=== PATIENT | female | born 1990 | race Caucasian/White ===

== ENCOUNTER 2019-11-14 11:09 | Inpatient (IN) | payer OTHER ==
[~2019-11-14 11:09] MED LIST: Bupivacaine 0.25% 10 ML SDV ONE
[2019-11-14] MEDS ORDERED: Ondansetron 4 MG/2 ML SDV IVPUSH PRN ×2 (11:38→16:32)
[2019-11-14] MEDS ORDERED: Sodium Chloride 0.9% 10 ML Syringe FLUSH PRN (11:38)
[2019-11-14] MEDS ORDERED: Nalbuphine 10 MG/ML Syringe IVPUSH PRN (11:38)
--- NOTE | 2019-11-14 11:40 | PCM.LDHP ---
L&D History of Present Illness - General Date of Service: 11/14/19 Admit Problem/Dx: Patient Status Order with Admit Dx/Problem 11/14/19 11:38 Patient Status [ADT] Routine Admission Diagnosis/Problem Admission Diagnosis/Problem Spontaneous rupture of membranes Source of Information: Patient History Limitations: Reports: No Limitations - History of Present Illness Introduction:: 29 y/o at 40 5/7 wks who presents today for SROM. Was seen in clinic earlier today for membrane sweeping. Thought to have LOF with this motion and so advised to present to L&D. Doing well currently. 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: : 1 Para: 0 - Past Surgical History HEENT Surgical History: Reports: Oral Surgery (tooth extraction) Social & Family History - Tobacco Use Smoking Status *Q: Never Smoker - Alcohol Use Alcohol Use History: No - Recreational Drug Use Recreational Drug Use: No H&P Review of Systems - Review of Systems: Review Of Systems: See Below General: Reports: No Symptoms Pulmonary: Reports: No Symptoms Cardiovascular: Reports: No Symptoms Gastrointestinal: Reports: No Symptoms Genitourinary: Reports: No Symptoms Musculoskeletal: Reports: No Symptoms Psychiatric: Reports: No Symptoms L&D Exam - Exam Exam: See Below - Vital Signs Vital Signs: Last Vital Signs Temp 37.1 C 11/14/19 11:21 Pulse 93 11/14/19 11:21 Resp 16 11/14/19 11:21 BP 112/81 11/14/19 11:21 Pulse Ox 99 11/14/19 11:21 Weight: 85.684 kg - OB Specific Contraction Intensity: Mild Movement: Active Heart Tones: Present Heart Tones per Min: 130 Heart Rate (FHR) Variability: Moderate (6-25 bmp) Presentation: Vertex - Loya Score Loya Score Cervix Position: Posterior Loya Score Consistency: Soft Loya Score Effacement: 51-70% Loya Score Dilation: 1-2 cm Loya Score 's Station: -2 Loya Score Total: 6 - Exam General: Alert, Oriented, Cooperative Lungs: Clear to Auscultation, Normal Respiratory Effort Cardiovascular: Regular Rate, Regular Rhythm GI/Abdominal Exam: Soft, Non-Tender Genitourinary: Normal external exam Extremities: Normal Inspection Skin: Warm, Dry, Intact - Patient Data Result Diagrams: 11/14/19 11:49 - Problem List (1) 40 weeks gestation of SNOMED Code(s): 87223990 ICD Code: Z3A.40 - 40 WEEKS GESTATION OF Status: Acute Current Visit: Yes (2) Spontaneous rupture of membranes SNOMED Code(s): 269305947 ICD Code: [id number] - Status: Acute Current Visit: Yes Problem List Initiated/Reviewed/Updated: Yes Orders Last 24hrs: Active Orders 24 hr Category Date Time Status Patient Status [ADT] Routine ADT 11/14/19 11:38 Ordered Activity as Tolerated [RC] PFP Care 11/14/19 11:38 Ordered Communication Order [RC] ASDIRECTED Care 11/14/19 11:38 Ordered Heart Tones [RC] ASDIRECTED Care 11/14/19 11:39 Ordered Non Stress Test [RC] PER UNIT ROUTINE Care 11/14/19 11:38 Ordered Notify Provider [RC] PRN Care 11/14/19 11:38 Ordered Peripheral IV Care [RC] . DIRECTED Care 11/14/19 11:39 Ordered Vital Signs [RC] PER UNIT ROUTINE Care 11/14/19 11:38 Ordered CBC W/O DIFF,HEMOGRAM [HEME] Stat Lab 11/14/19 11:38 Ordered RAPID PLASMA REAGIN,RPR [CHEM] Routine Lab 11/14/19 11:38 Ordered TYPE AND SCREEN [BBK] Stat Lab 11/14/19 11:38 Ordered Lactated Ringers [Ringers, Lactated] 1,000 ml Med 11/14/19 11:45 Ordered IV ASDIRECTED Nalbuphine [Nubain] Med 11/14/19 11:38 Ordered 10 mg IVPUSH Q2H PRN Ondansetron [Zofran] Med 11/14/19 11:38 Ordered 4 mg IVPUSH Q4H PRN Oxytocin/Lactated Ringers [Pitocin in LR 10 Units/1,000 Med 11/14/19 11:45 Ordered ML] 10 unit in 1,000 ml IV .CONTINUOUS Sodium Chloride 0.9% [Saline Flush] Med 11/14/19 11:38 Ordered 10 ml FLUSH ASDIRECTED PRN Electronic Heart Tones Ext w TOCO [WOMSER] Ot 11/14/19 11:38 Ordered Routine Electronic Heart Tones Internal [WOMSER] Per Unit Ot 11/14/19 11:38 Ordered Routine Peripheral IV Insertion Adult [OM.PC] Routine Ot 11/14/19 11:38 Ordered Resuscitation Status Routine Resus Stat 11/14/19 11:38 Ordered Assessment/Plan Comment:: * Exam done and shows maybe a forebag. Attempt at rupture done - scant additional fluid released * Labs done * GBS negative * Consider pitocin augmentation * Pain management per patient preference * Anticipate
[2019-11-14] MEDS ORDERED: Oxytocin/Lactated Ringers 10 UNIT/1,000 ML BAG IV SCH ×2 (11:45→13:00)
[2019-11-14] MEDS: Lactated Ringers 1,000 ML IV SCH ×4 (15:59→20:00)
[2019-11-14] MEDS ORDERED: ePHEDrine 50 MG/ML SDV IVPUSH PRN (16:32)
[2019-11-14] MEDS ORDERED: fentaNYL 100 MCG/2 ML SDV EPIDUR PRN (16:32)
--- NOTE | 2019-11-14 16:36 | PCM.PREANE ---
Preanesthetic Assessment - Procedure Proposed Procedure: Epidural - Anesthesia/Transfusion/Family Hx Anesthesia History: Prior Anesthesia Without Reaction Family History of Anesthesia Reaction: No Transfusion History: No Prior Transfusion(s) Intubation History: Unknown - Review of Systems General: No Symptoms Pulmonary: No Symptoms Cardiovascular: No Symptoms Gastrointestinal: No Symptoms Neurological: No Symptoms Other: Reports: None - Physical Assessment NPO Status Date: 11/14/19 NPO Status Time: 10:45 Vital Signs: Last Vital Signs Temp 37.1 C 11/14/19 11:21 Pulse 93 11/14/19 11:21 Resp 16 11/14/19 11:21 BP 112/81 11/14/19 11:21 Pulse Ox 99 11/14/19 11:21 Height: 1.6 m Weight: 85.684 kg ASA Class: 2 Mental Status: Alert & Oriented x3 Airway Class: Mallampati = 2 Dentition: Reports: Normal Dentition, Caries Thyro-Mental Finger Breadths: 3 Mouth Opening Finger Breadths: 3 ROM/Head Extension: Full Lungs: Clear to Auscultation, Normal Respiratory Effort Cardiovascular: Regular Rate, Regular Rhythm, No Murmurs - Lab Values: Laboratory Last Values WBC 11.20 K/mm3 (3.98-10.04) H 11/14/19 11:49 RBC 4.22 M/mm3 (3.98-5.22) 11/14/19 11:49 Hgb 10.7 gm/dl (11.2-15.7) L 11/14/19 11:49 Hct 33.9 % (34.1-44.9) L 11/14/19 11:49 MCV 80.3 fl (79.4-94.8) 11/14/19 11:49 MCH 25.4 pg (25.6-32.2) L 11/14/19 11:49 MCHC 31.6 g/dl (32.2-35.5) L 11/14/19 11:49 RDW Std Deviation 41.5 fL (36.4-46.3) 11/14/19 11:49 Plt Count 221 K/mm3 (182-369) 11/14/19 11:49 MPV 11.8 fl (9.4-12.3) 11/14/19 11:49 Blood Type A POSITIVE 11/14/19 11:49 Gel Antibody Screen Negative 11/14/19 11:49 Above labs reviewed and noted and within acceptable ranges to proceed with epidural if desired. 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: - Infectious Disease History Infectious Disease History: Reports: Chicken Pox - Past Surgical History HEENT Surgical History: Reports: Oral Surgery (tooth extraction) - SUBSTANCE USE Smoking Status *Q: Never Smoker Recreational Drug Use History: No - HOME MEDS Home Medications: Home Meds Vits #93/Iron Fum/FA [ Formula Tablet] 1 each PO 11/14/19 [ History] - CURRENT (IN HOUSE) MEDS Current Meds: Current Medications Ephedrine Sulfate (Ephedrine Sulfate) 5 mg IVPUSH ASDIRECTED PRN PRN Reason: Hypotension Fentanyl (Sublimaze) 100 mcg EPIDUR Q3H PRN PRN Reason: Pain Fentanyl/Bupivacaine HCl (Fentanyl/Bupivacaine/Ns 2 Mcg-0.125% 100 Ml) 100 ml EPIDUR ASDIRECTED DAI Lactated Ringer's (Ringers, Lactated) 1,000 mls @ 100 mls/hr IV ASDIRECTED DAI Last Admin: 11/14/19 15:59 Dose: 100 mls/hr Oxytocin/Lactated Ringer's (Pitocin In Lr 10 Units/1,000 Ml) 10 unit in 1,000 mls @ 500 mls/hr IV .CONTINUOUS DAI Oxytocin/Lactated Ringer's (Pitocin In Lr 10 Units/1,000 Ml) 10 unit in 1,000 mls @ 12 mls/hr IV TITRATE DAI; Protocol Last Titration: 11/14/19 16:17 Dose: 1 munits/min, 6 mls/hr Phenylephrine HCl 1 mg/ Sodium (Chloride) 10.1 mls @ 1 mls/sec IV TITRATE DAI; Protocol Nalbuphine HCl (Nubain) 10 mg IVPUSH Q2H PRN PRN Reason: Pain Ondansetron HCl (Zofran) 4 mg IVPUSH Q4H PRN PRN Reason: Nausea/Vomiting Ondansetron HCl (Zofran) 4 mg IVPUSH ONETIME PRN PRN Reason: Nausea/Vomiting Sodium Chloride (Saline Flush) 10 ml FLUSH ASDIRECTED PRN PRN Reason: Keep Vein Open
[2019-11-14] MEDS ORDERED: Bupivacaine/fentaNYL/NS 100 ML Bag EPIDUR SCH (16:45)
[2019-11-14] MEDS ORDERED: Phenylephrine 1 MG in Sodium Chloride 0.9% 10 ML IV SCH (16:45)
--- NOTE | 2019-11-14 22:43 | PCM.DEL ---
L & D Note - General Info Date of Service: 11/14/19 - Delivery Note Labor: Augmented by Oxytocin Delivery Outcome: Livebirth Delivery Method: Spontaneous Vaginal Delivery-Single Delivery Mode: Spontaneous Presentation: Right Occiput Anterior (SARIAH) Nuchal Cord: None Anesthesia Type: Epidural Amniotic Fluid Description: Clear Episiotomy Type: None Laceration: 2nd Degree, Perineal Suture type: Vicryl Suture size: 2-0 Placenta: Intact, Spontaneous Cord: 3 Vessels Estimated Blood Loss: 100 [place]: Bulb Syringe, Stimulated, Warmed, [place] Used, Warmer Used Delivery Comments (Free Text/Narrative):: Patient found to be complete and began pushing. With maternal pushing effort head delivered from an SARIAH presentation. No nuchal cord present. With gentle downward traction shoulders and body delivered. Infant placed on maternal abdomen. Cord clamped and cut. Cord blood obtained. Placenta allowed time to separate an expelled intact. Inspection of the perineum showed a 2nd degree laceration which was repaired with a 2-0 vicryl in the typical fashion. - General Info Date of Service: 11/14/19 - Patient Data Vitals - Most Recent: Last Vital Signs Temp 37.1 C 11/14/19 11:21 Pulse 93 11/14/19 11:21 Resp 16 11/14/19 11:21 BP 112/81 11/14/19 11:21 Pulse Ox 99 11/14/19 11:21 Weight - Most Recent: 85.684 kg I&O - Last 24 Hours: Intake & Output 11/14/19 11/14/19 11/14/19 06:59 14:59 22:59 Intake Total 1999 Balance 1999 - Problem List & Annotations (1) 40 weeks gestation of SNOMED Code(s): 71544499 Code(s): Z3A.40 - 40 WEEKS GESTATION OF Status: Acute Current Visit: Yes (2) Spontaneous rupture of membranes SNOMED Code(s): 826243163 Code(s): FXD7843 - Status: Acute Current Visit: Yes (3) Vaginal delivery SNOMED Code(s): 320418080 Code(s): O80 - ENCOUNTER FOR FULL-TERM UNCOMPLICATED DELIVERY Status: Acute Current Visit: Yes - Problem List Review Problem List Initiated/Reviewed/Updated: Yes - My Orders Last 24 Hours: My Active Orders 11/14/19 11:38 Patient Status [ADT] Routine Activity as Tolerated [RC] PFP Communication Order [RC] ASDIRECTED Non Stress Test [RC] PER UNIT ROUTINE Notify Provider [RC] PRN Vital Signs [RC] PER UNIT ROUTINE Nalbuphine [Nubain] 10 mg IVPUSH Q2H PRN Ondansetron [Zofran] 4 mg IVPUSH Q4H PRN Sodium Chloride 0.9% [Saline Flush] 10 ml FLUSH ASDIRECTED PRN Electronic Heart Tones Ext w TOCO [WOMSER] Routine Electronic Heart Tones Internal [WOMSER] Per Unit Routine Peripheral IV Insertion Adult [OM.PC] Routine Resuscitation Status Routine 11/14/19 11:39 Heart Tones [RC] ASDIRECTED Peripheral IV Care [RC] . DIRECTED 11/14/19 11:45 Lactated Ringers [Ringers, Lactated] 1,000 ml IV ASDIRECTED Oxytocin/Lactated Ringers [Pitocin in LR 10 Units/1,000 ML] 10 unit in 1,000 ml IV .CONTINUOUS 11/14/19 13:00 Oxytocin/Lactated Ringers [Pitocin in LR 10 Units/1,000 ML] 10 unit in 1,000 ml IV TITRATE 11/14/19 17:48 Urinary Catheter Assessment [RC] ASDIRECTED 11/14/19 18:00 Insert Urinary Catheter [OM.PC] Q24H 11/14/19 Breakfast Regular Diet [DIET] - Assessment Assessment:: PPD#0 - Plan Plan:: * Routine cares * Breast feeding * Discharge in 1-2 days
[2019-11-15] MEDS ORDERED: Acetaminophen 325 MG Tab PO PRN
[2019-11-15] MEDS ORDERED: Benzocaine/Menthol 20%-0.5% Spray 56 GM Canister TOP PRN
[2019-11-15] MEDS ORDERED: Witch Hazel Medicated Pads 40/Jar TOP PRN
[2019-11-15] MEDS: Ibuprofen 600 MG Tab PO PRN ×4 (01:02→19:30)
--- NOTE | 2019-11-15 07:49 | PCM.PNPP ---
- General Info Date of Service: 11/15/19 Functional Status: Reports: Pain Controlled, Tolerating Diet, Ambulating, Urinating - Review of Systems General: Reports: No Symptoms Pulmonary: Reports: No Symptoms Cardiovascular: Reports: No Symptoms Gastrointestinal: Reports: No Symptoms Genitourinary: Reports: No Symptoms Musculoskeletal: Reports: No Symptoms Neurological: Reports: No Symptoms - General Info Date of Service: 11/15/19 - Patient Data Vital Signs - Most Recent: Last Vital Signs Temp 36.7 C 11/15/19 03:00 Pulse 89 11/15/19 03:22 Resp 12 11/15/19 03:22 BP 119/64 11/15/19 03:22 Pulse Ox 97 11/15/19 03:22 Weight - Most Recent: 85.684 kg I&O - Last 24 Hours: Intake & Output 11/14/19 11/15/19 11/15/19 22:59 06:59 14:59 Intake Total 2000 2500 Output Total 700 Balance 1300 2500 Lab Results - Last 24 Hours: Laboratory Results - last 24 hr 11/14/19 11/14/19 11/14/19 Range/Units 11:49 11:49 11:49 WBC 11.20 H (3.98-10.04) K/mm3 RBC 4.22 (3.98-5.22) M/mm3 Hgb 10.7 L (11.2-15.7) gm/dl Hct 33.9 L (34.1-44.9) % MCV 80.3 (79.4-94.8) fl MCH 25.4 L (25.6-32.2) pg MCHC 31.6 L (32.2-35.5) g/dl RDW Std Deviation 41.5 (36.4-46.3) fL Plt Count 221 (182-369) K/mm3 MPV 11.8 (9.4-12.3) fl RPR Non-reactive (NONREACTIVE) Blood Type A POSITIVE Gel Antibody Screen Negative Med Orders - Current: Current Medications Acetaminophen (Tylenol) 650 mg PO Q4H PRN PRN Reason: mild pain or fever Benzocaine/Menthol (Dermoplast Pain Relief [place]) 0 gm TOP ASDIRECTED PRN PRN Reason: Perineal Comfort Measure Last Admin: 11/15/19 01:04 Dose: 1 applic Docusate Sodium (Colace) 100 mg PO BID PRN PRN Reason: Constipation Ibuprofen (Motrin) 600 mg PO Q6H PRN PRN Reason: Mild pain or fever Last Admin: 11/15/19 07:17 Dose: 600 mg Witch Sandy (Tucks) 1 pad TOP ASDIRECTED PRN PRN Reason: Perineal Comfort Measure Last Admin: 11/15/19 01:03 Dose: 1 pad Discontinued Medications Ephedrine Sulfate (Ephedrine Sulfate) 5 mg IVPUSH ASDIRECTED PRN PRN Reason: Hypotension Fentanyl (Sublimaze) 100 mcg EPIDUR Q3H PRN PRN Reason: Pain Last Admin: 11/14/19 17:14 Dose: 100 mcg Fentanyl/Bupivacaine HCl (Fentanyl/Bupivacaine/Ns 2 Mcg-0.125% 100 Ml) 100 ml EPIDUR ASDIRECTED DAI Last Admin: 11/14/19 17:14 Dose: 100 ml Lactated Ringer's (Ringers, Lactated) 1,000 mls @ 100 mls/hr IV ASDIRECTED DAI Last Admin: 11/14/19 20:00 Dose: 100 mls/hr Oxytocin/Lactated Ringer's (Pitocin In Lr 10 Units/1,000 Ml) 10 unit in 1,000 mls @ 500 mls/hr IV .CONTINUOUS DAI Oxytocin/Lactated Ringer's (Pitocin In Lr 10 Units/1,000 Ml) 10 unit in 1,000 mls @ 12 mls/hr IV TITRATE DAI; Protocol Last Titration: 11/14/19 16:17 Dose: 1 munits/min, 6 mls/hr Phenylephrine HCl 1 mg/ Sodium (Chloride) 10.1 mls @ 1 mls/sec IV TITRATE DAI; Protocol Nalbuphine HCl (Nubain) 10 mg IVPUSH Q2H PRN PRN Reason: Pain Ondansetron HCl (Zofran) 4 mg IVPUSH Q4H PRN PRN Reason: Nausea/Vomiting Ondansetron HCl (Zofran) 4 mg IVPUSH ONETIME PRN PRN Reason: Nausea/Vomiting Sodium Chloride (Saline Flush) 10 ml FLUSH ASDIRECTED PRN PRN Reason: Keep Vein Open - Interaction Infant Disposition, : [place] in Room with Family Interaction: Holding Infant Infant Feeding: Attempted ; Nursed Fair/Poor Support Person: - Recovery Exam Fundal Tone: Firm Fundal Level: At Umbilicus Fundal Placement: Midline Lochia Amount: Small Lochia Color: Rubra/Red Perineum Description: Other (see below) Other Perinuem Description: 1st degree laceration with repair Bladder Status: Voiding Urinary Elimination: Voided - Exam General: Alert, Oriented, Cooperative GI/Abdominal Exam: Soft, Non-Tender Extremities: Normal Inspection Skin: Warm, Dry, Intact - Problem List & Annotations (1) 40 weeks gestation of SNOMED Code(s): 99243323 Code(s): Z3A.40 - 40 WEEKS GESTATION OF Status: Acute Current Visit: Yes (2) Spontaneous rupture of membranes SNOMED Code(s): 128593109 Code(s): MCU1387 - Status: Acute Current Visit: Yes (3) Vaginal delivery SNOMED Code(s): 176748232 Code(s): O80 - ENCOUNTER FOR FULL-TERM UNCOMPLICATED DELIVERY Status: Acute Current Visit: Yes - Problem List Review Problem List Initiated/Reviewed/Updated: Yes - My Orders Last 24 Hours: My Active Orders 11/14/19 11:38 Vital Signs [RC] PER UNIT ROUTINE Resuscitation Status Routine 11/14/19 11:39 Heart Tones [RC] ASDIRECTED 11/15/19 00:00 Activity as Tolerated [RC] PER UNIT ROUTINE Vital Signs [RC] 03,09,15,21 Acetaminophen [Tylenol] 650 mg PO Q4H PRN Benzocaine/Menthol [Dermoplast Pain Relief [place]] See Dose Instructions TOP ASDIRECTED PRN Docusate Sodium [Colace] 100 mg PO BID PRN Ibuprofen [Motrin] 600 mg PO Q6H PRN witch Sandy [Tucks] 1 pad TOP ASDIRECTED PRN Assess Lochia [WOMSER] Per Unit Routine Assess Uterine Involution [WOMSER] Per Unit Routine Breast Pump [WOMSER] Per Unit Routine Heat Therapy [OM.PC] PRN Ice Therapy [OM.PC] Per Unit Routine Perineal Care [OM.PC] Per Unit Routine Peripheral IV Discontinue [OM.PC] Routine Sitz Bath [OM.PC] Per Unit Routine 11/15/19 Breakfast Regular Diet [DIET] 11/16/19 00:00 Heat Therapy [OM.PC] PRN - Assessment Assessment:: PPD#1 - Plan Plan:: * Routine cares * Breast feeding * Discharge home today
--- NOTE | 2019-11-15 07:59 | PCM48HPAN ---
Post Anesthesia Note - EVALUATION WITHIN 48HRS OF ANESTHETIC Vital Signs in Normal Range: Yes Patient Participated in Evaluation: Yes Respiratory Function Stable: Yes Airway Patent: Yes Cardiovascular Function Stable: Yes Hydration Status Stable: Yes Pain Control Satisfactory: Yes Nausea and Vomiting Control Satisfactory: Yes Mental Status Recovered: Yes Vital Signs: Last Vital Signs Temp 36.7 C 11/15/19 03:00 Pulse 89 11/15/19 03:22 Resp 12 11/15/19 03:22 BP 119/64 11/15/19 03:22 Pulse Ox 97 11/15/19 03:22 - COMMENTS/OBSERVATIONS Free Text/Narrative:: no anesthesia complications noted
[2019-11-15] MEDS: Docusate Sodium 100 MG Cap PO PRN ×2 (08:59→19:31)
[2019-11-16] MEDS: Ibuprofen 600 MG Tab PO PRN ×2 (03:17→09:12)
--- NOTE | 2019-11-16 06:51 | PCM.DCSUM1 ---
Discharge Summary - Hospital Course Brief History: Admitted, uncomplicated labor and . Desires discharge home. Diagnosis: Stroke: No - Discharge Data Discharge Date: 11/16/19 Discharge Disposition: Home, Self-Care 01 Condition: Good - Referral to Home Health Primary Care Physician: PCP None - Patient Instructions Diet: Usual Diet as Tolerated Activity: No Strenuous Activities Activity, Other: pelvic rest Driving: May Drive Today Showering/Bathing: May Shower Notify Provider of: Fever, Increased Pain, Swelling and Redness, Drainage, Nausea and/or Vomiting - Discharge Plan *PRESCRIPTION DRUG MONITORING PROGRAM REVIEWED*: No *COPY OF PRESCRIPTION DRUG MONITORING REPORT IN PATIENT FREDERIC: No Home Medications: Home Meds Vits #93/Iron Fum/FA [ Formula Tablet] 1 each PO 11/14/19 [ History] Referrals: Judith Wynn MD [Physician] - (2-3 weeks) - Discharge Summary/Plan Comment DC Time >30 min.: No - General Info Date of Service: 11/16/19 Functional Status: Reports: Pain Controlled - Review of Systems General: Reports: No Symptoms HEENT: Reports: No Symptoms Pulmonary: Reports: No Symptoms Cardiovascular: Reports: No Symptoms Gastrointestinal: Reports: No Symptoms Genitourinary: Reports: No Symptoms Musculoskeletal: Reports: No Symptoms Skin: Reports: No Symptoms Neurological: Reports: No Symptoms Psychiatric: Reports: No Symptoms - Patient Data Vitals - Most Recent: Last Vital Signs Temp 36.4 C 11/16/19 03:13 Pulse 69 11/16/19 03:13 Resp 14 11/16/19 03:13 BP 106/65 11/16/19 03:13 Pulse Ox 96 11/16/19 03:13 Weight - Most Recent: 85.684 kg Med Orders - Current: Current Medications Acetaminophen (Tylenol) 650 mg PO Q4H PRN PRN Reason: mild pain or fever Benzocaine/Menthol (Dermoplast Pain Relief [place]) 0 gm TOP ASDIRECTED PRN PRN Reason: Perineal Comfort Measure Last Admin: 11/15/19 01:04 Dose: 1 applic Docusate Sodium (Colace) 100 mg PO BID PRN PRN Reason: Constipation Last Admin: 11/15/19 19:31 Dose: 100 mg Ibuprofen (Motrin) 600 mg PO Q6H PRN PRN Reason: Mild pain or fever Last Admin: 11/16/19 03:17 Dose: 600 mg Witch [place] (Tucks) 1 pad TOP ASDIRECTED PRN PRN Reason: Perineal Comfort Measure Last Admin: 11/15/19 01:03 Dose: 1 pad Discontinued Medications Bupivacaine HCl (Sensorcaine-Mpf 0.25%) 10 ml .ROUTE .STK-MED ONE Stop: 11/14/19 00:01 Bupivacaine HCl (Sensorcaine-Mpf 0.25%) 10 ml .ROUTE .STK-MED ONE Stop: 11/14/19 00:01 Ephedrine Sulfate (Ephedrine Sulfate) 5 mg IVPUSH ASDIRECTED PRN PRN Reason: Hypotension Fentanyl (Sublimaze) 100 mcg EPIDUR Q3H PRN PRN Reason: Pain Last Admin: 11/14/19 17:14 Dose: 100 mcg Fentanyl/Bupivacaine HCl (Fentanyl/Bupivacaine/Ns 2 Mcg-0.125% 100 Ml) 100 ml EPIDUR ASDIRECTED DAI Last Admin: 11/14/19 17:14 Dose: 100 ml Lactated Ringer's (Ringers, Lactated) 1,000 mls @ 100 mls/hr IV ASDIRECTED DAI Last Admin: 11/14/19 20:00 Dose: 100 mls/hr Oxytocin/Lactated Ringer's (Pitocin In Lr 10 Units/1,000 Ml) 10 unit in 1,000 mls @ 500 mls/hr IV .CONTINUOUS DAI Oxytocin/Lactated Ringer's (Pitocin In Lr 10 Units/1,000 Ml) 10 unit in 1,000 mls @ 12 mls/hr IV TITRATE DAI; Protocol Last Titration: 11/14/19 16:17 Dose: 1 munits/min, 6 mls/hr Phenylephrine HCl 1 mg/ Sodium (Chloride) 10.1 mls @ 1 mls/sec IV TITRATE DAI; Protocol Nalbuphine HCl (Nubain) 10 mg IVPUSH Q2H PRN PRN Reason: Pain Ondansetron HCl (Zofran) 4 mg IVPUSH Q4H PRN PRN Reason: Nausea/Vomiting Ondansetron HCl (Zofran) 4 mg IVPUSH ONETIME PRN PRN Reason: Nausea/Vomiting Sodium Chloride (Saline Flush) 10 ml FLUSH ASDIRECTED PRN PRN Reason: Keep Vein Open - Exam General: Reports: Alert, Oriented HEENT: Reports: Pupils Equal, Pupils Reactive, EOMI, Mucous Membr. Moist/[place] Neck: Reports: Supple Lungs: Reports: Clear to Auscultation, Normal Respiratory Effort Cardiovascular: Reports: Regular Rate, Regular Rhythm GI/Abdominal Exam: Normal Bowel Sounds, Soft, Non-Tender, No Organomegaly, No Distention, No Abnormal Bruit, No Mass, Pelvis Stable Rectal (Female) Exam: Normal Exam Back Exam: Reports: Normal Inspection, Full Range of Motion Extremities: Normal Inspection, Normal Range of Motion Skin: Reports: Warm, Dry, Intact Neurological: Reports: No New Focal Deficit Psy/Mental Status: Reports: Alert, Normal Affect, Normal Mood
[2019-11-16] MEDS: Docusate Sodium 100 MG Cap PO PRN (11:52)
== END 2019-11-16 14:10 | disposition home or self-care (01) | DRG 807 ==
LOC: JD.OBCHECK 11:09 → JD.OB 11:13 → JD.OBCHECK 11:37 → JD.OB 11:38 → OBSVTOIN 22:05 → JD.OB 22:05
PROVIDERS: ADMIT Obstetrics & Gynecology; ATTEND Obstetrics & Gynecology
PROC: 10E0XZZ Delivery of Products of Conception, External Approach (ICD-10-PCS; principal; 2019-11-14)
PROC: 0KQM0ZZ Repair Perineum Muscle, Open Approach (ICD-10-PCS; 2019-11-14)
PROC: 10907ZC Drainage of Amniotic Fluid, Therapeutic from Products of Conception, Via Natural or Artificial Opening (ICD-10-PCS; 2019-11-14)
PROC: 3E0R3BZ Introduction of Anesthetic Agent into Spinal Canal, Percutaneous Approach (ICD-10-PCS; 2019-11-14)
DX: O48.0 Post-term pregnancy (principal); Z37.0 Single live birth; Z3A.40 40 weeks gestation of pregnancy; O70.1 Second degree perineal laceration during delivery
CPT/HCPCS: 36415; 51702; 59025; 59409; 85027; 86592; 86850; 86900; 86901; A9270-GY; J2590; J3010; J3490; J7120

== ENCOUNTER 2021-07-10 13:35 | Emergency (ER) | payer OTHER ==
[2021-07-10] MEDS ORDERED: Ondansetron 4 MG/2 ML SDV IVPUSH ONE (13:51)
[2021-07-10] MEDS ORDERED: Sodium Chloride 0.9% 10 ML Syringe FLUSH PRN (13:51)
[2021-07-10] MEDS ORDERED: Sodium Chloride 0.9% 1,000 ML IV SCH (14:00)
--- NOTE | 2021-07-10 15:51 | EDM.PDOC ---
ED HPI GENERAL MEDICAL PROBLEM - General Chief Complaint: Gastrointestinal Problem Stated Complaint: 18 WKS PG NAUSEA Time Seen by Provider: 07/10/21 13:48 Source of Information: Reports: Patient History Limitations: Reports: No Limitations - History of Present Illness INITIAL COMMENTS - FREE TEXT/NARRATIVE: 31-year-old female presents the emergency department today with complaints of nausea and vomiting. Nausea and vomiting started at approximately 12:30 AM this morning. She states she has vomited throughout the night and has not been able to keep any food or fluids down. Even small sips of water. Patient is 18 weeks . Last menstrual period 02/27/2021, MIRI 12/09/2021. She denies any fever, chills, headache, cough, shortness of breath or diarrhea or abdominal pain. She states that she has had a healthy otherwise. She has not had any hyperemesis associated with her . She states she does have some urinary symptoms that she noted this morning with voiding. She is voiding very small amounts and burning is noted. She denies any abdominal cramping or vaginal bleeding. She also states that approximately 2 days ago her friend and her sister both had 24 hours of nausea, vomiting and diarrhea. Her [employer] is . - Related Data Allergies Allergy/AdvReac Type Severity Reaction Status Date / Time Sulfa (Sulfonamide Allergy Rash Verified 11/14/19 11:25 Antibiotics) Home Meds: Home Meds Vits #93/Iron Fum/FA [ Formula Tablet] 1 tab PO DAILY 07/10/21 [History] Past Medical History - Past Health History Medical/Surgical History: Denies Medical/Surgical History [employer] History: Reports: Other [employer] History: - Infectious Disease History Infectious Disease History: Reports: Chicken Pox - Past Surgical History HEENT Surgical History: Reports: Oral Surgery Social & Family History - Family History Family Medical History: No Pertinent Family History - Tobacco Use Tobacco Use Status *Q: Never Tobacco User - Caffeine Use Caffeine Use: Reports: None - Recreational Drug Use Recreational Drug Use: No ED ROS GENERAL - Review of Systems Review Of Systems: Comprehensive ROS is negative, except as noted in HPI. ED EXAM, GI/ABD - Physical Exam Exam: See Below Exam Limited By: No Limitations General Appearance: Alert, WD/WN, No Apparent Distress Eyes: Bilateral: Normal Appearance Ears: Normal External Exam, Hearing Grossly Normal Nose: Normal Inspection Throat/Mouth: Normal Inspection, Normal Lips, Normal Voice, No Airway Compromise Head: Atraumatic Neck: Normal Inspection, Supple Respiratory/Chest: No Respiratory Distress, Lungs Clear, Normal Breath Sounds, No Accessory Muscle Use, Chest Non-Tender Cardiovascular: Normal Peripheral Pulses, Regular Rate, Rhythm, No Edema, No Murmur GI/Abdominal Exam: Normal Bowel Sounds (Female) Exam: Deferred Rectal (Female) Exam: Deferred Back Exam: Normal Inspection Extremities: Normal Inspection, Normal Range of Motion, Non-Tender, No Pedal Edema, Normal Capillary Refill Neurological: Alert, Oriented, Normal Cognition Psychiatric: Normal Affect, Normal Mood Skin Exam: Warm, Dry, Intact, Normal Color, No Rash Lymphatic: No Adenopathy Course - Vital Signs Text/Narrative:: As stated above, patient presents with 12-hour history of nausea and vomiting. Patient is tachycardic with a heart rate of 121 and a blood pressure of 98 over 80. Patient is likely dehydrated. Nursing staff has not planted standing orders and patient is currently receiving normal saline wide open and has received Zofran 4 mg IV. They have selected lab studies as well as urinalysis with micro and culture if indicated. At the time of my exam, patient states she is not having any nausea or vomiting. Physical exam is essentially unremarkable. Will evaluate labs once they return. Last Recorded V/S: Last Vital Signs Temp 98.4 F 07/10/21 13:45 Pulse 121 H 07/10/21 13:45 Resp 14 07/10/21 13:45 BP 98/80 07/10/21 13:45 Pulse Ox 96 07/10/21 13:45 - Orders/Labs/Meds Orders: Active Orders 24 hr Category Date Time Status Communication Order [RC] ASDIRECTED Care 07/10/21 13:51 Active Communication Order [RC] ASDIRECTED Care 07/10/21 13:51 Active Communication Order [RC] ASDIRECTED Care 07/10/21 13:51 Active Communication Order [RC] ASDIRECTED Care 07/10/21 13:51 Active Orthostatic Vital Signs [RC] ASDIRECTED Care 07/10/21 13:51 Active Peripheral IV Care [RC] . DIRECTED Care 07/10/21 13:51 Active Sodium Chloride 0.9% [Saline Flush] Med 07/10/21 13:51 Active 10 ml FLUSH ASDIRECTED PRN Peripheral IV Insertion Adult [OM.PC] Stat Oth 07/10/21 13:51 Ordered Medication Orders Sodium Chloride (Sodium Chloride 0.9% 10 Ml Syringe) 10 ml FLUSH ASDIRECTED PRN PRN Reason: Keep Vein Open Last Admin: 07/10/21 14:32 Dose: 10 ml Documented by: DELIO Labs: Laboratory Tests 07/10/21 07/10/21 07/10/21 Range/Units 14:15 14:15 15:35 WBC 11.06 H (3.98-10.04) K/mm3 RBC 4.49 (3.98-5.22) M/mm3 Hgb 11.6 (11.2-15.7) gm/dl Hct 35.8 (34.1-44.9) % MCV 79.7 (79.4-94.8) fl MCH 25.8 (25.6-32.2) pg MCHC 32.4 (32.2-35.5) g/dl RDW Std Deviation 42.2 (36.4-46.3) fL Plt Count 243 (182-369) K/mm3 MPV 10.6 (9.4-12.3) fl Neut % (Auto) 92.7 H (34.0-71.1) % Lymph % (Auto) 3.6 L (19.3-51.7) % [place] % (Auto) 3.2 L (4.7-12.5) % Eos % (Auto) 0 L (0.7-5.8) Baso % (Auto) 0.1 (0.1-1.2) % Neut # (Auto) 10.26 H (1.56-6.13) K/mm3 Lymph # (Auto) 0.40 L (1.18-3.74) K/mm3 [place] # (Auto) 0.35 (0.24-0.36) K/mm3 Eos # (Auto) 0.00 L (0.04-0.36) K/mm3 Baso # (Auto) 0.01 (0.01-0.08) K/mm3 Manual Slide Review Abnormal smear Sodium 139 (136-145) mEq/L Potassium 3.5 (3.5-5.1) mEq/L Chloride 104 (98-107) mEq/L Carbon Dioxide 21 (21-32) mEq/L Anion Gap 17.5 H (5-15) BUN 14 (7-18) mg/dL Creatinine 0.5 L (0.55-1.02) mg/dL Est Cr Clr Drug Dosing 133.62 mL/min Estimated GFR (MDRD) > 60 (>60) mL/min BUN/Creatinine Ratio 28.0 H (14-18) Glucose 93 (70-99) mg/dL Calcium 7.7 L (8.5-10.1) mg/dL Magnesium 1.6 L (1.8-2.4) mg/dL Total Bilirubin 0.4 (0.2-1.0) mg/dL AST 13 L (15-37) U/L ALT 17 (14-59) U/L Alkaline Phosphatase 51 (46-116) U/L C-Reactive Protein 1.1 H* (<1.0) mg/dL Total Protein 6.6 (6.4-8.2) g/dl Albumin 3.2 L (3.4-5.0) g/dl Globulin 3.4 gm/dL Albumin/Globulin Ratio 0.9 L (1-2) Lipase 68 L (73-393) U/L Urine Color Yellow (Yellow) Urine Appearance Clear (Clear) Urine pH 6.0 (5.0-8.0) Ur Specific Millen > or = 1.030 (1.005-1.030) Urine Protein 2+ H (Negative) Urine Glucose (UA) Negative (Negative) Urine Ketones 4+ H (Negative) Urine Occult Blood Negative (Negative) Urine Nitrite Negative (Negative) Urine Bilirubin Negative (Negative) Urine Urobilinogen 0.2 (0.2-1.0) Ur Leukocyte Esterase Negative (Negative) Urine RBC 0-5 (0-5) /hpf Urine WBC 0-5 (0-5) /hpf Ur Squamous Epith Cells 0-5 (0-5) /hpf Urine Bacteria Few (FEW) /hpf Urine Mucus Moderate H (FEW) /hpf Meds: Medications Generic Name Dose Route Start Last Admin Trade Name Freq PRN Reason Stop Dose Admin Sodium Chloride 10 ml 07/10/21 13:51 07/10/21 14:32 Sodium Chloride 0.9% 10 Ml Syringe FLUSH 10 ml ASDIRECTED PRN Administration Keep Vein Open Discontinued Medications Generic Name Dose Route Start Last Admin Trade Name Helen PRN Reason Stop Dose Admin Sodium Chloride 1,000 mls @ 999 mls/hr 07/10/21 14:00 07/10/21 14:23 Normal Saline IV 07/10/21 14:59 999 mls/hr Q1H DAI Administration Ondansetron HCl 4 mg 07/10/21 13:51 07/10/21 14:23 Ondansetron 4 Mg/2 Ml Sdv IVPUSH 07/10/21 13:52 4 mg ONETIME ONE Administration - Re-Assessments/Exams Free Text/Narrative Re-Assessment/Exam: 07/10/21 16:00 Hematology reveals a WBC of 11.06, hemoglobin 11.6, hematocrit 35.8, platelet count 234 Chemistry reveals a sodium of 139, potassium 3.5, anion gap 17.5, BUN 14, creatinine 0.5, GFR greater than 60, glucose 93, calcium 7.7, magnesium 1.6, C- reactive protein 1.1 Urinalysis reveals 2+ protein, 4+ ketones, nitrite negative, leukocyte esterase negative and micro is pending. 07/10/21 16:17 Urine micro was unremarkable. 07/10/21 16:21 Patient states she is feeling significantly better after receiving Zofran and IV fluids. She will be discharged home with a prescription for Zofran ODT. Is r ecommended that she consume only clear liquids for the next 24 hours and then advance to a bland diet after that. Departure - Departure Time of Disposition: 16:21 Disposition: Home, Self-Care 01 Condition: Good Clinical Impression: Gastroenteritis - Discharge Information Instructions: Viral Gastroenteritis, Adult, [id number] Referrals: Judith Wynn MD [Primary Care Provider] - Forms: ED Department Discharge Additional Instructions: You were seen in the emergency department today with nausea and vomiting that started last evening at approximately 12:30 AM. While in the emergency department lab studies were completed as well as urinalysis. These were all essentially unremarkable however you did appear slightly dehydrated. He did receive a liter of IV fluids as well as nausea medication while in the emergency department and this did seem to help. Suspect that you have the stomach flu similar to what your and other family members had. I have given you a prescription for nausea medication called Zofran. This medication can be placed under your tongue and allow to dissolve. Wait approximately 30 minutes and then attempt to eat or drink. You may take this medication every 8 hours as needed for nausea and vomiting. Recommend clear liquids only for the next 24 hours and then carefully advance to a bland diet after that. You should probably follow- up with your [employer] this week for reevaluation. Should your condition worsen or change, do not hesitate returning to the ER. Sepsis Event Note (ED) - Evaluation Sepsis Screening Result: No Definite Risk - Focused Exam Vital Signs: Vital Signs Temp Pulse Resp BP Pulse Ox 07/10/21 13:45 98.4 F 121 H 14 98/80 96 - My Orders Last 24 Hours: My Active Orders 07/10/21 13:51 Communication Order [RC] ASDIRECTED Communication Order [RC] ASDIRECTED Communication Order [RC] ASDIRECTED Communication Order [RC] ASDIRECTED Orthostatic Vital Signs [RC] ASDIRECTED Peripheral IV Care [RC] . DIRECTED Sodium Chloride 0.9% [Saline Flush] 10 ml FLUSH ASDIRECTED PRN Peripheral IV Insertion Adult [OM.PC] Stat - Assessment/Plan Last 24 Hours: My Active Orders 07/10/21 13:51 Communication Order [RC] ASDIRECTED Communication Order [RC] ASDIRECTED Communication Order [RC] ASDIRECTED Communication Order [RC] ASDIRECTED Orthostatic Vital Signs [RC] ASDIRECTED Peripheral IV Care [RC] . DIRECTED Sodium Chloride 0.9% [Saline Flush] 10 ml FLUSH ASDIRECTED PRN Peripheral IV Insertion Adult [OM.PC] Stat
== END 2021-07-10 16:36 | disposition home or self-care (01) ==
LOC: JD.ED 13:35
DX: O99.612 Diseases of the digestive system complicating pregnancy, second trimester (principal); K52.9 Noninfective gastroenteritis and colitis, unspecified; Z3A.18 18 weeks gestation of pregnancy; Z88.2 Allergy status to sulfonamides
CPT/HCPCS: 36415; 80053; 81001; 83690; 83735; 85025; 86140; 96361; 96374; 99284; J2405; J7030

== ENCOUNTER 2021-12-15 01:43 | Inpatient (IN) | payer OTHER ==
[2021-12-15] MEDS ORDERED: Nalbuphine HCl 10 MG/ 1ML Amp IVPUSH PRN (13:47)
[2021-12-15] MEDS ORDERED: Sodium Chloride 0.9% 10 ML Syringe FLUSH PRN (13:47)
[2021-12-15] MEDS ORDERED: Lidocaine 1% 50 ML MDV INJECT PRN (13:47)
[2021-12-15] MEDS ORDERED: Oxytocin/Lactated Ringers 10 UNIT/1,000 ML BAG IV SCH ×2 (14:00)
[2021-12-15] MEDS: Lactated Ringers 1,000 ML IV SCH ×3 (14:15→21:27)
[2021-12-15] MEDS ORDERED: Bupivacaine/fentaNYL/NS 100 ML Bag EPIDUR PRN (16:24)
[2021-12-15] MEDS ORDERED: diphenhydrAMINE 50 MG/ML SDV IVPUSH PRN (16:24)
[2021-12-15] MEDS ORDERED: fentaNYL 100 MCG/2 ML SDV EPIDUR PRN (16:24)
[2021-12-15] MEDS ORDERED: Sodium Chloride 0.9% 10 ML Syringe FLUSH SCH (21:00)
[2021-12-15] MEDS: ePHEDrine 50 MG/ML SDV IVPUSH PRN ×3 (21:52→23:03)
[2021-12-16] MEDS ORDERED: Bupivacaine 0.25% 10 ML SDV ONE
[2021-12-16] MEDS: Lactated Ringers 1,000 ML IV SCH (02:03)
[2021-12-16] MEDS ORDERED: Acetaminophen 325 MG Tab PO PRN (02:49)
[2021-12-16] MEDS ORDERED: Benzocaine/Menthol 20%-0.5% Spray 78 GM Cannister TOP PRN (02:49)
[2021-12-16] MEDS ORDERED: Witch Hazel Medicated Pads 40/Jar TOP PRN (02:49)
[2021-12-16] MEDS: Ibuprofen 600 MG Tab PO PRN ×4 (02:58→20:59)
[2021-12-16] MEDS: Docusate Sodium 100 MG Cap PO PRN ×2 (09:24→20:59)
[2021-12-17] MEDS: Docusate Sodium 100 MG Cap PO PRN (09:22)
[2021-12-17] MEDS: Ibuprofen 600 MG Tab PO PRN (09:22)
== END 2021-12-17 11:30 | disposition home or self-care (01) | DRG 807 ==
LOC: JD.OB 01:43 → OBSVTOIN 12-16 01:43 → JD.OB 12-16 02:30
PROVIDERS: ADMIT Obstetrics & Gynecology; ATTEND Obstetrics & Gynecology
PROC: 10E0XZZ Delivery of Products of Conception, External Approach (ICD-10-PCS; principal; 2021-12-16)
PROC: 0KQM0ZZ Repair Perineum Muscle, Open Approach (ICD-10-PCS; 2021-12-16)
PROC: 10907ZC Drainage of Amniotic Fluid, Therapeutic from Products of Conception, Via Natural or Artificial Opening (ICD-10-PCS; 2021-12-16)
PROC: 3E033VJ Introduction of Other Hormone into Peripheral Vein, Percutaneous Approach (ICD-10-PCS; 2021-12-16)
PROC: 3E0R3BZ Introduction of Anesthetic Agent into Spinal Canal, Percutaneous Approach (ICD-10-PCS; 2021-12-16)
PROC: 00HU33Z Insertion of Infusion Device into Spinal Canal, Percutaneous Approach (ICD-10-PCS; 2021-12-16)
DX: O48.0 Post-term pregnancy (principal); Z37.0 Single live birth; O70.1 Second degree perineal laceration during delivery; Z3A.40 40 weeks gestation of pregnancy; Z88.2 Allergy status to sulfonamides
CPT/HCPCS: 01967; 36415; 51702; 59025; 59409; 85025; 86592; A9270-GY; J2590; J3010; J3490; J7120

== ENCOUNTER 2021-12-28 20:59 | Emergency (ER) | payer OTHER ==
[2021-12-28] MEDS ORDERED: Sodium Chloride 0.9% 1,000 ML IV ONE (21:37)
[2021-12-28] MEDS ORDERED: Ondansetron 4 MG/2 ML SDV IVPUSH ONE (21:43)
[2021-12-28] MEDS ORDERED: Ibuprofen 600 MG Tab PO ONE (21:58)
[2021-12-28] MEDS ORDERED: Acetaminophen 325 MG Tab PO ONE (21:58)
[2021-12-28] MEDS ORDERED: Acetaminophen 325 MG Tab ONE (22:13)
[2021-12-29] MEDS ORDERED: Orphenadrine 100 MG Tab.ER PO STA (00:19)
== END 2021-12-29 00:45 | disposition home or self-care (01) ==
LOC: JD.ED 20:59
DX: B34.9 Viral infection, unspecified (principal); M54.32 Sciatica, left side; R11.2 Nausea with vomiting, unspecified; Z88.2 Allergy status to sulfonamides; Z20.822 Contact with and (suspected) exposure to COVID-19
CPT/HCPCS: 36415; 71046; 80053; 81001; 83605; 83735; 85007; 85027; 86140; 87040; 87635; 96361; 96374; 99284; A9270; J2405; J7030; 99282; U0002